=== PATIENT | female | born 1985 | race Caucasian/White ===

== ENCOUNTER 2017-06-03 08:56 | Observation (INO) | payer OTHER ==
[~2017-06-03] VITALS: Ht 165.1 cm; Wt 70.9 kg
[2017-06-03 09:40] VITALS: BP 108/64
[2017-06-03] MEDS ORDERED: TERBUTALINE 1 MG/ML, 1ML SQ ONE (11:00)
[2017-06-03] MEDS ORDERED: TERBUTALINE 1 MG/ML, 1ML ONE (11:01)
[2017-06-03] MEDS ORDERED: INDOMETHACIN 50 MG CAPSULE PO ONE ×2 (16:00→22:10)
[2017-06-03] MEDS ORDERED: ACETAMINOPHEN 325 MG TABLET ONE (16:15)
[2017-06-03] MEDS ORDERED: ACETAMINOPHEN 325 MG TABLET PO ONE (16:30)
[2017-06-03] MEDS ORDERED: PRENATAL VIT/IRON/FA 1 EACH TABLET ONE (19:55)
[2017-06-03 20:22] VITALS: BP 122/65
[2017-06-03] MEDS ORDERED: PRENATAL VIT/IRON/FA 1 EACH TABLET PO SCH (21:00)
[2017-06-04] MEDS ORDERED: NIFE10CA2 PO (06:36)
== END 2017-06-04 10:05 | disposition home or self-care (01) ==
LOC: LDOP 08:56 → LDIP 14:55
PROVIDERS: ADMIT Obstetrics & Gynecology; ATTEND Obstetrics & Gynecology
DX: O26.899 Other specified pregnancy related conditions, unspecified trimester (principal); R10.9 Unspecified abdominal pain; Z3A.00 Weeks of gestation of pregnancy not specified
CPT/HCPCS: 36415; 59025; 81003; 82731; 87086; 96372; G0378; J3105

== ENCOUNTER 2017-08-06 20:21 | Outpatient (CLI) | payer OTHER ==
[~2017-08-06] VITALS: Ht 165.1 cm; Wt 76.0 kg
[~2017-08-06 20:21] MED LIST: NIFE10CA2 PO
== END 2017-08-06 21:00 | disposition home or self-care (01) ==
LOC: LDOP 20:21
PROVIDERS: ATTEND Obstetrics & Gynecology
DX: O36.8130 Decreased fetal movements, third trimester, not applicable or unspecified (principal); O62.9 Abnormality of forces of labor, unspecified; O36.5930 Maternal care for other known or suspected poor fetal growth, third trimester, not applicable or unspecified; O43.123 Velamentous insertion of umbilical cord, third trimester; O34.83 Maternal care for other abnormalities of pelvic organs, third trimester; Q51.4 Unicornate uterus; Z3A.36 36 weeks gestation of pregnancy
CPT/HCPCS: 59025; 99211; G0463

== ENCOUNTER 2017-08-24 12:38 | Outpatient (CLI) | payer OTHER ==
[~2017-08-24] VITALS: Ht 165.1 cm; Wt 77.3 kg
[2017-08-24 15:20] VITALS: BP 113/66
== END 2017-08-24 15:18 | disposition home or self-care (01) ==
LOC: LDOP 12:38
PROVIDERS: ATTEND Obstetrics & Gynecology
DX: O26.893 Other specified pregnancy related conditions, third trimester (principal); O43.123 Velamentous insertion of umbilical cord, third trimester; O36.5930 Maternal care for other known or suspected poor fetal growth, third trimester, not applicable or unspecified; O62.9 Abnormality of forces of labor, unspecified; O32.1XX0 Maternal care for breech presentation, not applicable or unspecified; R10.9 Unspecified abdominal pain; Z3A.38 38 weeks gestation of pregnancy
CPT/HCPCS: 59025; 99211; G0463

== ENCOUNTER 2017-08-26 07:03 | Inpatient (IN) | payer OTHER ==
[~2017-08-26] VITALS: Ht 165.1 cm; Wt 76.0 kg
[2017-08-26] MEDS ORDERED: LACTATED RINGERS 1,000 ML IVBOLUS ONE (07:30)
[2017-08-26] MEDS ORDERED: OXYTOCIN 30U/ 0.9% NaCL 500ML 500 ML IV SCH (07:30)
[2017-08-26] MEDS ORDERED: METOCLOPRAMIDE 5 MG/ML, 2ML IV ONE (07:30)
[2017-08-26] MEDS ORDERED: LACTATED RINGERS 1,000 ML IV SCH ×2 (07:30→11:34)
[2017-08-26] MEDS ORDERED: SODIUM CITRATE/CITRIC ACID 30 ML UDC PO ONE (07:30)
[2017-08-26 08:00] LABS: HEMATOCRIT 34.8 % (34.6-47.8); HEMOGLOBIN 11.9 g/dL (11.7-16.4); WHITE BLOOD COUNT 5.7 x10^3/uL (3.4-10)
[2017-08-26] MEDS ORDERED: SODIUM CITRATE/CITRIC ACID 30 ML UDC ONE (08:24)
[2017-08-26] MEDS ORDERED: METOCLOPRAMIDE 5 MG/ML, 2ML ONE ×2 (08:24→15:37)
[2017-08-26] MEDS ORDERED: NEWBORN KIT ONE (09:12)
[2017-08-26] MEDS ORDERED: OXYTOCIN 10 UNITS/ML, 1ML ONE ×2 (09:27→15:37)
[2017-08-26] MEDS ORDERED: CEFAZOLIN 1,000 MG ONE ×2 (09:27→15:37)
[2017-08-26] MEDS ORDERED: ONDANSETRON 2MG/ML, 2ML ONE ×2 (09:27→15:37)
[2017-08-26] MEDS ORDERED: KETOROLAC 30 MG/1 ML ONE ×2 (09:27→15:37)
[2017-08-26] MEDS ORDERED: PHENYLEPHRINE 10 MG/ML ONE (09:27)
[2017-08-26] MEDS ORDERED: EPHEDRINE 50 MG/ML, 1ML ONE (09:27)
[2017-08-26] MEDS ORDERED: DEXAMETHASONE 4 MG/ML, 1ML ONE ×2 (09:27→15:37)
[2017-08-26] MEDS ORDERED: FENTANYL PF 100 MCG/2ML ONE ×2 (09:27→13:06)
[2017-08-26] MEDS ORDERED: MIDAZOLAM 1 MG/ML, 2ML IV PRN (09:30)
[2017-08-26] MEDS ORDERED: HYDROcodone/APAP 7.5-325MG/15ML UDC PO PRN (09:30)
[2017-08-26] MEDS ORDERED: PROMETHAZINE 25 MG/ML, 1ML IV PRN (09:30)
[2017-08-26] MEDS ORDERED: ALBUTEROL SULFATE 2.5 MG/3 ML NPPB PRN (09:30)
[2017-08-26] MEDS ORDERED: LABETALOL 5MG/ML, 20ML IV PRN (09:30)
[2017-08-26] MEDS ORDERED: OXYcodone 5 MG/5 ML ORAL.SOL UDC PO PRN (09:30)
[2017-08-26] MEDS ORDERED: ONDANSETRON 2MG/ML, 2ML IVPush PRN (09:30)
[2017-08-26] MEDS ORDERED: EPHEDRINE 50 MG/ML, 1ML IVPush PRN (09:30)
[2017-08-26] MEDS ORDERED: hydrALAzine 20 MG/ML, 1ML IV PRN (09:30)
[2017-08-26] MEDS ORDERED: MEPERIDINE/PF 25MG/0.5ML IVPush PRN (09:30)
[2017-08-26] MEDS ORDERED: HYDROmorphone 1 MG/ML, 1ML IV PRN ×2 (09:30→12:00)
[2017-08-26] MEDS: LACTATED RINGERS 1,000 ML IV SCH ×2 (11:34→19:34)
[2017-08-26] MEDS: OXYTOCIN 30U/ 0.9% NaCL 500ML 500 ML IV SCH ×2 (11:34→21:34)
[2017-08-26] MEDS ORDERED: OXYTOCIN 30U/ 0.9% NaCL 500ML 500 ML ONE (11:43)
[2017-08-26] MEDS ORDERED: METHYLERGONOVINE 0.2 MG/ML IM PRN (12:00)
[2017-08-26] MEDS ORDERED: CARBOPROST TROMETHAMINE 250 MCG/ML, 1ML IM PRN (12:00)
[2017-08-26] MEDS ORDERED: ONDANSETRON 2MG/ML, 2ML IV PRN (12:00)
[2017-08-26] MEDS ORDERED: MISOPROSTOL 200 MCG TABLET PR PRN (12:00)
[2017-08-26] MEDS ORDERED: SIMETHICONE 80 MG CHEW TAB PO PRN (12:00)
[2017-08-26] MEDS ORDERED: CALCIUM CARBONATE 500 MG TAB.CHEW PO PRN (12:00)
[2017-08-26] MEDS ORDERED: BISACODYL 10 MG SUPP PR PRN (12:00)
[2017-08-26] MEDS: KETOROLAC 30 MG/1 ML IV SCH ×3 (12:00→22:33)
[2017-08-26] MEDS: FENTANYL PF 100 MCG/2ML IV PRN ×2 (13:12→13:24)
[2017-08-26 13:40] VITALS: BP 139/92
[2017-08-26] MEDS: ACETAMINOPHEN 325 MG TABLET PO SCH ×2 (14:36→21:13)
[2017-08-26] MEDS: OXYcodone IR 5MG TABLET PO PRN ×3 (14:36→22:33)
[2017-08-26 17:30] VITALS: BP 117/75
[2017-08-26 18:12] LABS: HEMATOCRIT 31.4 % (34.6-47.8); HEMOGLOBIN 10.8 g/dL (11.7-16.4); WHITE BLOOD COUNT 14.5 x10^3/uL (3.4-10)
[2017-08-26 20:00] VITALS: BP 114/73
[2017-08-26] MEDS: DOCUSATE 100 MG CAPSULE PO PRN (21:13)
[2017-08-26 22:17] VITALS: BP 114/73
[2017-08-26] MEDS ORDERED: RHOGAM FROM BLOOD BANK 1 NOTE EA IM/IV ONE (22:30)
[2017-08-27 00:10] VITALS: BP 111/74
[2017-08-27] MEDS: ACETAMINOPHEN 325 MG TABLET PO SCH ×4 (02:47→20:58)
[2017-08-27] MEDS: OXYcodone IR 5MG TABLET PO PRN ×5 (02:47→19:02)
[2017-08-27] MEDS: LACTATED RINGERS 1,000 ML IV SCH ×3 (03:34→19:34)
[2017-08-27] MEDS: KETOROLAC 30 MG/1 ML IV SCH (04:29)
[2017-08-27 04:54] VITALS: BP 112/76
[2017-08-27] MEDS: DOCUSATE 100 MG CAPSULE PO PRN ×2 (06:54→19:02)
[2017-08-27 07:30] VITALS: BP 125/84
[2017-08-27] MEDS: OXYTOCIN 30U/ 0.9% NaCL 500ML 500 ML IV SCH ×2 (07:34→17:34)
[2017-08-27] MEDS: PRENATAL VIT/IRON/FA 1 EACH TABLET PO SCH (08:21)
[2017-08-27] MEDS ORDERED: OXYcodone IR 5MG TABLET ONE (10:33)
[2017-08-27] MEDS ORDERED: IBUPROFEN 600 MG TABLET ONE (10:33)
[2017-08-27] MEDS: IBUPROFEN 600 MG TABLET PO PRN ×2 (10:35→16:17)
[2017-08-27 20:00] VITALS: BP 114/78
[2017-08-28] MEDS: OXYcodone IR 5MG TABLET PO PRN ×3 (00:09→10:37)
[2017-08-28] MEDS: IBUPROFEN 600 MG TABLET PO PRN ×2 (00:09→07:33)
[2017-08-28] MEDS: ACETAMINOPHEN 325 MG TABLET PO SCH ×2 (02:50→10:59)
[2017-08-28] MEDS: LACTATED RINGERS 1,000 ML IV SCH ×2 (03:34→11:34)
[2017-08-28] MEDS: OXYTOCIN 30U/ 0.9% NaCL 500ML 500 ML IV SCH (03:34)
[2017-08-28 07:15] VITALS: BP 128/82
[2017-08-28] MEDS: PRENATAL VIT/IRON/FA 1 EACH TABLET PO SCH (07:33)
[2017-08-28] MEDS: DOCUSATE 100 MG CAPSULE PO PRN (07:33)
[2017-08-28] MEDS ORDERED: IBUP-1222 PO (08:47)
[2017-08-28] MEDS ORDERED: DOCU-131 PO (08:48)
[2017-08-28] MEDS ORDERED: OXYC5CAP2 PO (08:48)
== END 2017-08-28 12:35 | disposition home or self-care (01) | DRG 766 ==
LOC: LDIP 07:03 → 2NW 13:41
PROVIDERS: ADMIT Obstetrics & Gynecology; ATTEND Obstetrics & Gynecology
PROC: 10D00Z1 Extraction of Products of Conception, Low, Open Approach (ICD-10-PCS; principal; 2017-08-26)
PROC: 30233S1 Transfusion of Nonautologous Globulin into Peripheral Vein, Percutaneous Approach (ICD-10-PCS; 2017-08-26)
DX: O32.1XX0 Maternal care for breech presentation, not applicable or unspecified (principal); O34.03 Maternal care for unspecified congenital malformation of uterus, third trimester; O43.123 Velamentous insertion of umbilical cord, third trimester; Z37.0 Single live birth; Q51.4 Unicornate uterus; Z3A.39 39 weeks gestation of pregnancy
CPT/HCPCS: 36415; 85025; 85461; 86850; 86900; J0690; J1100; J1885; J2405; J2790; J3010; J2370; J2590; J2765; J7120

== ENCOUNTER 2019-11-22 09:22 | Emergency (ER) | payer OTHER ==
[~2019-11-22] VITALS: Ht 165.1 cm; Wt 62.4 kg
[~2019-11-22 09:22] MED LIST changes: +DOCU-131 PO; +IBUP-1222 PO; -NIFE10CA2 PO; +NIFE10CA49 PO; +OXYC5CAP2 PO; +PNV1TABL85 PO
[2019-11-22 10:05] LABS: CULTURE INDICATED? YES; MICROSCOPIC INDICATED
--- NOTE | 2019-11-22 10:08 | NUR ---
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
--- NOTE | 2019-11-22 10:15 | NUR ---
PT PLACED IN GOWN, WARM BLANKETS AND PILLOW PROVIDED. CALL LIGHT WITHIN REACH.
--- NOTE | 2019-11-22 11:01 | NUR ---
REPORT TO KARTIK, TRANSFER OF CARE AT THIS TIME.
--- NOTE | 2019-11-22 11:11 | NUR ---
VERBAL SBAR EXCHANGED W DARLENE Grullon (RN). I AM ASSUMING CARE OF THIS PT AT THIS TIME.
--- NOTE | 2019-11-22 11:19 | NUR ---
PHLEBOTOMY IS AT THE BEDSIDE FOR BLOOD SAMPLING
--- NOTE | 2019-11-22 12:10 | NUR ---
TASK RN: SPOKE WITH BLOOD BANK, RHOGAM SHOULD BE READY TO GIVE PT IN 10 MINUTES. MD AND CHARGE UPDATED ON DELAY
[2019-11-22 12:42] VITALS: BP 113/78
== END 2019-11-22 12:49 ==
LOC: ED 12:20
DX: O9A.212 Injury, poisoning and certain other consequences of external causes complicating pregnancy, second trimester (principal); M54.2 Cervicalgia; R10.30 Lower abdominal pain, unspecified; Z3A.14 14 weeks gestation of pregnancy; V49.09XA Driver injured in collision with other motor vehicles in nontraffic accident, initial encounter; Y93.89 Activity, other specified; Y92.89 Other specified places as the place of occurrence of the external cause; Y99.8 Other external cause status
CPT/HCPCS: 36415; 81001; 86850; 86900; 87086; 96372; 99283; J2790

== ENCOUNTER → 2020-04-09 | Outpatient (CLI) | payer OTHER ==
[~2020-04-09] VITALS: Ht 165.1 cm; Wt 71.4 kg
[~2020-04-09] MED LIST changes: +TERBUTALINE 1 MG/ML, 1ML ONE; +TERBUTALINE 1 MG/ML, 1ML SQ ONE
[2020-04-09 15:46] VITALS: BP 129/70
[2020-04-09 15:54] LABS: MICROSCOPIC INDICATED
== END | disposition home or self-care (01) ==
LOC: LDOP 15:14
PROVIDERS: ATTEND Obstetrics & Gynecology
DX: O62.9 Abnormality of forces of labor, unspecified (principal); R10.9 Unspecified abdominal pain; Z3A.33 33 weeks gestation of pregnancy
CPT/HCPCS: 59025; 81001; 87086; 96372; 99211; J3105; G0463

== ENCOUNTER 2020-05-12 23:36 | Inpatient (IN) | payer OTHER ==
[~2020-05-12] VITALS: Ht 165.1 cm; Wt 73.0 kg
[~2020-05-12 23:36] MED LIST changes: -TERBUTALINE 1 MG/ML, 1ML ONE; -TERBUTALINE 1 MG/ML, 1ML SQ ONE
[2020-05-12] MEDS ORDERED: OXYTOCIN 30U/ 0.9% NaCL 500ML 500 ML ONE (23:42)
[2020-05-12] MEDS ORDERED: NEWBORN KIT ONE (23:42)
[2020-05-12] MEDS ORDERED: METOCLOPRAMIDE 5 MG/ML, 2ML ONE (23:42)
[2020-05-12] MEDS ORDERED: SODIUM CITRATE/CITRIC ACID 30 ML UDC ONE (23:43)
[2020-05-12] MEDS ORDERED: PLEASE ENTER HEIGHT AND WEIGHT MC SCH (23:45)
[2020-05-13] MEDS ORDERED: LABETALOL 5MG/ML, 20ML IV PRN
[2020-05-13] MEDS ORDERED: HYDROcodone/APAP 7.5-325MG/15ML UDC PO PRN
[2020-05-13] MEDS ORDERED: EPHEDRINE 50 MG/ML, 1ML IVPush PRN
[2020-05-13] MEDS ORDERED: HYDROmorphone 2 MG/ML, 1ML IVPush PRN
[2020-05-13] MEDS ORDERED: PROMETHAZINE 25 MG/ML, 1ML IV PRN
[2020-05-13] MEDS ORDERED: MIDAZOLAM 1 MG/ML, 2ML IV PRN
[2020-05-13] MEDS ORDERED: ALBUTEROL SULFATE 2.5 MG/3 ML NPPB PRN
[2020-05-13] MEDS ORDERED: FENTANYL PF 100 MCG/2ML IV PRN
[2020-05-13] MEDS ORDERED: ONDANSETRON 2MG/ML, 2ML IVPush PRN
[2020-05-13] MEDS ORDERED: SODIUM CITRATE/CITRIC ACID 30 ML UDC PO ONE
[2020-05-13] MEDS ORDERED: LACTATED RINGERS 1,000 ML IVBOLUS ONE
[2020-05-13] MEDS ORDERED: MEPERIDINE/PF 25MG/0.5ML IVPush PRN
[2020-05-13] MEDS ORDERED: METOCLOPRAMIDE 5 MG/ML, 2ML IV ONE
[2020-05-13] MEDS ORDERED: METOPROLOL 1 MG/ML, 5ML IV PRN
[2020-05-13] MEDS ORDERED: OXYcodone 5 MG/5 ML ORAL.SOL UDC PO PRN
[2020-05-13] MEDS ORDERED: hydrALAzine 20 MG/ML, 1ML IV PRN
[2020-05-13] MEDS ORDERED: OXYTOCIN 10 UNITS/ML, 1ML ONE (00:21)
[2020-05-13] MEDS ORDERED: ONDANSETRON 2MG/ML, 2ML ONE (00:21)
[2020-05-13] MEDS ORDERED: DEXAMETHASONE 4 MG/ML, 1ML ONE (00:21)
[2020-05-13] MEDS ORDERED: FENTANYL PF 100 MCG/2ML ONE (00:21)
[2020-05-13] MEDS ORDERED: PHENYLEPHRINE 10 MG/ML ONE (00:21)
[2020-05-13] MEDS ORDERED: KETOROLAC 30 MG/1 ML ONE (00:21)
[2020-05-13] MEDS ORDERED: EPHEDRINE 50 MG/ML, 1ML ONE (00:21)
[2020-05-13] MEDS ORDERED: CEFAZOLIN 1,000 MG ONE (00:21)
[2020-05-13 00:22] LABS: BASOPHILS # (AUTO) 0.02 x10^3/uL (0-0.1); BASOPHILS % (AUTO) 0 % (0-1); EOSINOPHILS # (AUTO) 0.03 x10^3/uL (0-0.4); EOSINOPHILS % (AUTO) 0 % (1-7); LYMPHOCYTES # (AUTO) 2.09 x10^3/uL (1-3.4); LYMPHOCYTES % (AUTO) 28 % (22-44); MD NO; MEAN CORPUSCULAR HEMOGLOBIN 32.3 pg (27.0-34.8); MEAN CORPUSCULAR HGB CONC 33.8 g/dL (32.4-35.8); MONOCYTES # (AUTO) 0.36 x10^3/uL (0.2-0.8); MONOCYTES % (AUTO) 5 % (2-9); NEUTROPHILS # (AUTO) 4.98 x10^3/uL (1.8-6.8); NEUTROPHILS % (AUTO) 67 % (42-75); PLATELET COUNT 199 x10^3/uL (130-400); RED BLOOD COUNT 3.65 x10^6/uL (3.82-5.3); RED CELL DISTRIBUTION WIDTH 12.7 % (9.6-15.2)
[2020-05-13] MEDS ORDERED: LACTATED RINGERS 1,000 ML IV SCH ×2 (00:23→01:46)
[2020-05-13] MEDS ORDERED: D5%-LACTATED RINGERS 1,000 ML IV SCH (00:23)
[2020-05-13] MEDS ORDERED: HYDROmorphone 2 MG/ML, 1ML ONE (00:23)
[2020-05-13] MEDS: LACTATED RINGERS 1,000 ML IV SCH ×2 (01:46→21:35)
[2020-05-13] MEDS: KETOROLAC 30 MG/1 ML IV SCH ×5 (02:00→21:37)
[2020-05-13] MEDS ORDERED: MORPHINE SULFATE 4 MG/ML, 1ML IVPush PRN (02:00)
[2020-05-13] MEDS ORDERED: BISACODYL 10 MG SUPP PR PRN (02:00)
[2020-05-13] MEDS ORDERED: METHYLERGONOVINE 0.2 MG/ML IM PRN (02:00)
[2020-05-13] MEDS ORDERED: GLYCERIN ADULT SUPP PR PRN (02:00)
[2020-05-13] MEDS ORDERED: IBUPROFEN 800 MG TABLET PO PRN (02:00)
[2020-05-13] MEDS ORDERED: MISOPROSTOL 200 MCG TABLET PR PRN (02:00)
[2020-05-13] MEDS ORDERED: OXYcodone IR 5MG TABLET PO PRN (02:00)
[2020-05-13] MEDS ORDERED: CARBOPROST TROMETHAMINE 250 MCG/ML, 1ML IM PRN (02:00)
[2020-05-13] MEDS ORDERED: ONDANSETRON 2MG/ML, 2ML IV PRN (02:00)
[2020-05-13] MEDS ORDERED: METOCLOPRAMIDE 5 MG/ML, 2ML IV PRN (02:00)
[2020-05-13] MEDS: OXYTOCIN 30U/ 0.9% NaCL 500ML 500 ML IV SCH ×2 (02:30→21:35)
[2020-05-13 03:40] VITALS: BP 104/69
[2020-05-13] MEDS: OXYcodone/APAP 5/325MG TABLET PO PRN ×3 (04:45→21:50)
[2020-05-13 07:25] VITALS: BP 105/68
[2020-05-13] MEDS: DOCUSATE 100 MG CAPSULE PO PRN ×2 (08:20→21:49)
[2020-05-13] MEDS: PRENATAL VIT/IRON/FA 1 EACH TABLET PO SCH (08:21)
[2020-05-13 09:10] LABS: MEAN CORPUSCULAR HEMOGLOBIN 32.3 pg (27.0-34.8); MEAN CORPUSCULAR HGB CONC 33.1 g/dL (32.4-35.8); MEAN PLATELET VOLUME 7.7 fL (7.4-10.4); PLATELET COUNT 198 x10^3/uL (130-400); RED BLOOD COUNT 3.45 x10^6/uL (3.82-5.3); RED CELL DISTRIBUTION WIDTH 12.7 % (9.6-15.2)
[2020-05-13 09:32] LABS: BASOPHILS # (AUTO) 0.04 x10^3/uL (0-0.1); BASOPHILS % (AUTO) 0 % (0-1); EOSINOPHILS % (AUTO) 0 % (1-7); LYMPHOCYTES # (AUTO) 0.79 x10^3/uL (1-3.4); LYMPHOCYTES % (AUTO) 6 % (22-44); MD SCAN; MONOCYTES # (AUTO) 0.34 x10^3/uL (0.2-0.8); MONOCYTES % (AUTO) 3 % (2-9); NEUTROPHILS # (AUTO) 11.13 x10^3/uL (1.8-6.8); NEUTROPHILS % (AUTO) 91 % (42-75)
[2020-05-13] MEDS ORDERED: RHOGAM FROM BLOOD BANK 1 NOTE EA IM/IV ONE (11:30)
[2020-05-13 12:40] VITALS: BP 100/64
[2020-05-13] MEDS: IBUPROFEN 600 MG TABLET PO PRN ×2 (15:46→21:49)
[2020-05-13] MEDS: ACETAMINOPHEN 325 MG TABLET PO PRN ×2 (17:23→21:49)
[2020-05-13 19:45] VITALS: BP 99/62
[2020-05-14 00:45] VITALS: BP 109/68
[2020-05-14] MEDS: SIMETHICONE 80 MG CHEW TAB PO PRN ×3 (01:29→10:07)
[2020-05-14] MEDS: KETOROLAC 30 MG/1 ML IV SCH (02:00)
[2020-05-14] MEDS: ACETAMINOPHEN 325 MG TABLET PO PRN (02:44)
[2020-05-14] MEDS: OXYcodone/APAP 5/325MG TABLET PO PRN ×3 (02:44→15:56)
[2020-05-14 08:00] VITALS: BP 123/78
[2020-05-14] MEDS: PRENATAL VIT/IRON/FA 1 EACH TABLET PO SCH (08:00)
[2020-05-14] MEDS: DOCUSATE 100 MG CAPSULE PO PRN (08:00)
[2020-05-14] MEDS: IBUPROFEN 600 MG TABLET PO PRN ×2 (08:00→13:53)
[2020-05-14] MEDS ORDERED: IBUP-1222 PO (11:29)
[2020-05-14] MEDS ORDERED: DOCU-131 PO (11:29)
[2020-05-14] MEDS ORDERED: OXYC-302 PO (11:29)
[2020-05-14 12:30] VITALS: BP 122/78
== END 2020-05-14 19:18 | disposition home or self-care (01) | DRG 788 ==
LOC: LDOP 23:36 → LDIP 23:42 → 2NW 05-13 03:15
PROVIDERS: ADMIT Obstetrics & Gynecology; ATTEND Obstetrics & Gynecology
PROC: 10D00Z1 Extraction of Products of Conception, Low, Open Approach (ICD-10-PCS; principal; 2020-05-13)
DX: O65.5 Obstructed labor due to abnormality of maternal pelvic organs (principal); O34.211 Maternal care for low transverse scar from previous cesarean delivery; O69.81X0 Labor and delivery complicated by cord around neck, without compression, not applicable or unspecified; D64.9 Anemia, unspecified; O32.9XX0 Maternal care for malpresentation of fetus, unspecified, not applicable or unspecified; Z37.0 Single live birth; Z3A.38 38 weeks gestation of pregnancy; Z82.49 Family history of ischemic heart disease and other diseases of the circulatory system; O36.5930 Maternal care for other known or suspected poor fetal growth, third trimester, not applicable or unspecified; O34.03 Maternal care for unspecified congenital malformation of uterus, third trimester; Q51.4 Unicornate uterus
CPT/HCPCS: 36415; 85025; 85461; 86592; 86850; 86900; 87635; G0378; J0690; J1100; J1170; J1885; J2405; J2790; J3010; J2370; J2590; J2765; J7120